=== PATIENT | female | born 1955 | race Caucasian/White ===

== ENCOUNTER 2020-09-21 07:55 | Day surgery (SDC) | payer OTHER ==
--- NOTE | 2020-09-19 11:44 | EKG ---
Test Date: 2020-09-18 Test Time: 16:19:40 [employer]er: WENDY MEASUREMENT RESULTS: Intervals: Rate: 88 WA: 132 QRSD: 80 QT: 372 QTc: 450 [place]: P: 23 WA: 132 QRS: 39 T: 64 INTERPRETIVE STATEMENTS: Normal sinus rhythm Low voltage QRS Borderline ECG No previous ECG available for comparison Electronically Signed On 09-19-20 11:40:46 [employer] by Kushal Lynne
--- OUTSIDE RECORDS SUMMARY | 2020-09-21 08:03 | XMS REPORT | Continuity of Care Document ---
:1955 Author Organization [facility] Care Team Providers Name Role Phone [facility] Unavailable Un available Problems Problem Status Onset Classification Date Comments Sour e Date Reported M76.61 - Active [facility] "[facility] [place] TENDINITIS, RIGHT LEG Medications No Data Provided for This Section Allergies, Adverse Reactions, Alerts No Known Medication Allergies Immunizations No Data Provided for This Section Results No Data Provided for This Section Pathology Reports No Data Provided for This Section Diagnostic Reports Report Value Date Source Ankle wo contrast MRI Examination: MRI of the right ankle wi thout contrast 09/29/2015 [facility] [place] History: M76.61 Achilles tendinitis, right leg Comparison: None. TECHNIQUE: Multiplanar, mult isequence magnetic resonance imaging of the right ankle was performed without administration of intravenous gadolinium contrast. Findings: Bone and joint: Anatomic ali gnment is maintained across the right ankle. No acute bony fracture, joint dislocation, or stress-related marrow edema is seen. Scattered mild midfoot osteoarthritic changes are seen. There is a focal f ull-thickness 2 mm chondral defect along the medial tibial plafond. The sinus tarsi is unremarkable. Type I os navicularis is noted. Ligaments and tendons: Moder ate thickening and hyperintensity of the insertional fibers the Achilles tendon is seen, compatible with tendinosis. No tear or disruption is noted. Small amount of fluid in the adjacent retrocalcaneal bursa is seen. There is additional mild edema of the Kager's fat-pad. Medial flexor, lateral, and anterior tendons of the ankle are intact. The deltoid ligament complex is intact. The anterior talofibular, posterior talofibular, and calcaneofibular ligaments are intact. The syndesmotic ligaments are intact. Soft tissues: No extracapsul ar mass is seen. The tarsal tunnel and its contents are unremarkable. IMPRESSION: 1. Moderate insertional Achi lles tendinosis without tear or disruption. There is associated retrocalcaneal bursitis as well as peritendinitis. 2. Focal full-thickness 2 mm chondral defect of the medial tibial plafond. 3. Mild midfoot osteoarthrosis. SL: 16 Foot 3 views bilateral 12/22/2014 [facility] [place] DX REASON FOR EXAM: 696.0 Psoriatic arthritis. COMPARISON: Bilateral foot series 12/28/2012. FINDINGS: Three views of bot h feet. No demonstrable fracture, dislocation or erosion. The right foot series is rem arkable for a small posterior calcaneal enthesophyte at the insertion of the Achilles tendon. Small bony spurs involving the dorsal aspect of the first tarsal metatarsal join t. Small bony spur involving the distal interphalangeal joint of the third digit. Ankylosis of the distal interphalangeal joint of the fifth digit. The left foot series is colleen rkable for a tiny posterior calcaneal enthesophyte at the insertion of the Achilles tendon. Small bony spurs involving the distal interphalangeal joints of the third and fourth digits. IMPRESSION: There has been n o significant interval change from the comparison examination. SL: 16 Hand 2 views Bilateral 12/22/2014 [facility] [place] DX REASON FOR EXAM: 696.0 Psoriatic arthritis. COMPARISON: Bilateral hand x-ray 12/28/2012. FINDINGS: AP and lateral vie ws of both hands. Two images are submitted. No demonstrable fracture or dislocation. Images of the right hand are remarkable for a tiny bony spur involving the base of the distal phalanx of the first digit. Narrowing of the distal interphalangeal joints of the second through fourth digi ts. Joint space narrowing wi th central erosive change at the distal interphalangeal joint of the fifth digit. Images of the left hand are remarkable for a tiny bony spur involving the base of the distal phalanx of the first digit. Joint space narrowing with central erosive change at the distal interphalangeal j oints of the second and thir d digits. Narrowing of the distal interphalangeal joint of the fourth digit. Ankylosis of the distal interphalangeal joint of the fifth digit. Tiny bony spurs involving the p roximal interphalangeal join t of the fifth digit. Tiny cyst in the marrow of the lunate. IMPRESSION: There has been n o significant interval change from the comparison examination. SL: 16 Hip bilateral w pelvis 10/14/2013 [facility] [place] and both lat hips REASON FOR EXAM: Pain in joint. COMPARISON: None. FINDINGS: AP view of the pel vis. Additional view of each hip. Three images are submitted. The hip joint spaces are preserved without demonstrable arthritic change. The hips, sacroiliac joints and pubic symphysis are unremarkable. There are degenerative changes of the visualized lower lumbar spine. Calcified pelvic phleboliths. No demonstrable fracture, dislocation or osseous lesion. IMPRESSION: 1. Degenerative changes of the visualized lower lumbar spine. 2. Otherwise unremarkable views of the pelvis an d hips. Please correlate clinically and consider follow- up imaging as indicated. Dictation code: 16 Consultation Notes No Data Provided for This Section Discharge Summaries No Data Provided for This Section History and Physicals No Data Provided for This Section Vital Signs No Data Provided for This Section Encounters Location Location Encounter Encounter Reason Attending ADM [place] Stat Source Details Type Number For Provider Date Date Visit [facility] Outpt Diag [id number] [facility] 12[facility]22 12/23 [facility] [place] [place] [facility] Outpt Diag [id number] [place] 09/29 09/30 [facility] [place] Procedures No Data Provided for This Section Assessment and Plan No Data Provided for This Section Plan of Care No Data Provided for This Section Social History Social History Date Source No data available for this 09/30/2015 [facility] and section Family History No Data Provided for This Section Advance Directives No Data Provided for This Section Functional Status No Data Provided for This Section
--- OUTSIDE RECORDS SUMMARY | 2020-09-21 08:05 | XMS REPORT | Continuity of Care Document ---
:1955 Author Organization [facility] t Address [address] [place] [address] Care Team Providers Name Role Phone Doctor Unassigned, Name Attending Clinician Unavailable Lab, Fam Pob I Attending Clinician Unavailable Naldo LINDER Attending Clinician LYDIA Attending Clinician Unavailable ADRIAN Attending Clinician Unavailable LESVIA Attending Clinician Unavailable Jaciel Benoit Attending Clinician Real Waddell Attending Clinician Problems Condition Condition Condition Status Onset Resolution Last Treating Co mments Source Name Details Category Date Date Treatment Clinician Date M76.61 - Diagnosis Active 2014-102015-09-29 M latriciaria "ACHILLES 2-15 10:10:00 l TENDINITIS M76.61 - 00:01: He percy , RIGHT "ACHILLES 00 LEG TENDINITIS , RIGHT LEG Active 09/25/2015 DAVIDD Missy Abnormal Abnormal Problem Active Unive rs blood blood ity of level of level of [place] mineral mineral Physici ans Anemia Anemia Problem Active Univers ity of [place] Physici ans Localized Localized Problem Active Uni vers osteoarthr osteoarthr it y of itis of itis of [place] hand hand Physici ans Achilles Achilles Problem Active Unive rs tendinitis tendinitis it y of of right of right [place] lower lower Physici extremity extremity ans Drug Drug Problem Active Univers therapy therapy ity of [place] Physici ans Anxiety Anxiety Problem Active Univers ity of [place] Physici ans Foot pain Foot pain Problem Active Uni vers ity of [place] Physici ans Hand pain Hand pain Problem Active Uni vers ity of [place] Physici ans Encounter Encounter Problem Active Uni vers for for it[place] of methotrexa [place]otrexa [place] Physici monitoring monitoring an s Effusion Effusion Problem Active Unive rs of left of left ity of knee knee [place] Physici ans Chronic Chronic Problem Active Univers pain of pain of [place] of left knee left knee [place] Knee Knee Problem Active Univers osteoarthr osteoarthr it y of itis itis [place] Physici ans Psoriatic Psoriatic Problem Active Uni vers arthropath arthropath it y of y y [place] Physici ans Esophageal Esophageal Problem Active U nivers reflux reflux ity of [place] Physici ans Rotator Rotator Problem Active Univers cuff cuff ity of arthropath [place]ropath [place] of right y of right Ph ysici shoulder shoulder ans Rheumatoid Rheumatoid Problem Active U nivers arthritis, arthritis, it y of involving involving [place] unspecifie unspecifie Ph ysici d site, d site, ans unspecifie unspecifie d d rheumatoid rheumatoid factor factor presence presence Chronic Chronic Problem Active Univers frontal frontal [place]y of sinusitis [place]itis [place] ans Allergies, Adverse Reactions, Alerts Allergy Allergy Status Severity Reaction(s) Onset Inactive Treating Comm ents Source Name Type Date Date Clinician Bactrim Allergy Active Univers to drug ity of (finding [place] ) Physici ans Social History Social Habit Start Date Stop Date Quantity Comments Source Social History 2015-09-30 2015-09-30 [facility] 05:59:00 05:59:00 Smoking Status Start Date Stop Date Source Never smoked tobacco (finding) U [facility] Physicians Medications Ordered Filled Start Stop Current Ordering Indication Dosage Frequency Signature Comments Components Source Medication Medication Date Date Medication? Clinician (SIG) Name Name Pantoprazol Pantoprazol Yes GALLO Take 1 tab Univers e Sodium 20 e Sodium 20 2-21 FREEMAN twice a ity of MG Oral MG Oral 00:00: M.D. day with Patrice as Tablet Tablet 00 naproxen Physici Delayed Delayed ans Release Release Esomeprazol Esomeprazol 2018-10 Yes GALLO TAKE 1 Univers e Magnesium e Magnesium 1-15 FREEMAN CAPSULE ity of 20 MG Oral 20 MG Oral 00:00: M.D. TWICE [place] Capsule Capsule 00 DAILY Physici Delayed Delayed ALONG WITH ans Release Release NAPROXEN. Gel-One 30 Gel-One 30 Yes GALLO Inject one Univers MG/3ML MG/3ML 8-27 FREEMAN syringe ity of Intra-artic Intra-artic 00:00: M.D. into the [place] ular ular 00 knee by Physicmonique Prefilled Prefilled ans Syringe Syringe Pennsaid 2 Pennsaid 2 Yes GALLO Apply two Univers % % 9-13 FREEMAN pumps to ity of Transdermal Transdermal 00:00: M.D. bilateral [place] Solution Solution 00 knees Physic i twice a ans day traMADol traMADol Yes GALLO 1 QD TAKE 1 Uni vers HCl - 50 MG HCl - 50 MG 5-15 FREEMAN TABLET ity of Oral Tablet Oral Tablet 00:00: M.D. DAILY PRN Physici ans DULoxetine DULoxetine Yes GALLO QD TAKE TWO Univers HCl - 20 MG HCl - 20 MG 6-28 FREEMAN CAPSULES ity of Oral Oral 00:00: M.D. BY MOUTH [place] Capsule Capsule 00 DAILY Physici Delayed Delayed ans Release Release Particles Particles Methotrexat Methotrexat Yes GALLO TAKE 8 Univers e 2.5 MG e 2.5 MG 2-15 FREEMAN TABLETS BY ity of Oral Tablet Oral Tablet 00:00: M.D. MOUTH [place] 00 WEEKLY Physici ans Folic Acid Folic Acid Yes GALLO 2 QD TAKE TWO Univers 1 MG Oral 1 MG Oral 2-15 FREEMAN TABLETS BY ity of Tablet Tablet 00:00: M.D. MOUTH [place] 00 DAILY Physici ans Crestor 10 Crestor 10 Yes M.D. 1 QD TAKE 1 Univers MG Oral MG Oral 2-15 TABLET ity of Tablet Tablet 00:00: DAILY. Physici ans Levothyroxi Levothyroxi Yes M.D. 1 QD TAKE 1 Univers ne Sodium ne Sodium 2-15 TABLET ity of 75 MCG Oral 75 MCG Oral 00:00: DAILY. [place] Tablet Tablet 00 Physici ans Osteo Osteo Yes M.D. 2 QD TAKE 2 Univers Bi-Flex Adv Bi-Flex Adv 2-[address] 00:00: [place] Oral Tablet [place] Tablet 00 P hysici ans Multivitami Multivitami Yes M.D. 1 QD TAKE 1 Univers ns TABS ns TABS 2-15 TABLET ity of 00:00: DAILY. [place] 00 Physici ans Fish Oil Fish Oil 2011-0 Yes M.D. 1 Q0.5D TAKE 1 Un jayy 1000 MG 1000 MG 2-15 CAPSULE ity of Oral Oral 00:00: TWICE [place] Capsule Capsule 00 DAILY Physici ans Flonase 50 Flonase 50 Yes M.D. Uni vers MCG/ACT MCG/ACT ity of SUSP SUSP [place] Physici ans Allergy Allergy Yes M.D. Univers TABS TABS ity of [place] Physici ans Align CAPS Align CAPS Yes M.D. USE U nivers DIRECTED. ity of [place] Physici ans Montelukast Montelukast Yes M.D. U nivers Sodium 10 Sodium 10 ity o f MG Oral MG Oral [place] Tablet Tablet Physici ans Lisinopril Lisinopril Yes M.D. Uni vers 10 MG Oral 10 MG Oral ity of Tablet Tablet [place] Physici ans Folic Acid Folic Acid Yes M.D. Uni vers 5 MG Oral 5 MG Oral ity o f Capsule Capsule [place] Physici ans Immunizations Ordered Immunization Filled Immunization Date Status Commen ts Source Name Name Fluzone Quadrivalent 2018-07-20 Completed Univ ersity of 0.5 ML Intramuscular 10:13:00 [place] Suspension Vital Signs Vital Name Observation Time Observation Value Comments Source Systolic blood 2020-07-17 145 mm[Hg] Location: [facility] 11:00:00 Position: [place] Physician s Sitting Diastolic blood 2020-07-17 90 mm[Hg] Location: [facility] 11:00:00 Position: [place] Physician s Sitting Body height 2020-07-17 63 [in_us] [facility] 11:00:00 [place] Physician s Weight 2020-07-17 160 [lb_av] [facility] 11:00:00 [place] Physician s Body mass index 2020-07-17 28.34 kg/m2 [place] o f (BMI) [Ratio] 11:00:00 [place] valenzuela Body temperature 2020-07-17 97.9 [degF] Method: [facility] 11:00:00 Tympanic [place] Physician s Heart Rate 2020-07-17 74 /min Quality: Normal University o f 11:00:00 [place] Physician s Respiratory rate 2020-07-17 14 /min Quality: Normal Universi of 11:00:00 [place] Physician s O2 SAT 2020-07-17 97 % Source: [facility] 11:00:00 [place] Physician s Systolic blood 2020-03-21 135 mm[Hg] Location: [facility]; University of pressure 15:10:00 Position: [place] Physician s Sitting Diastolic blood 2020-03-21 87 mm[Hg] Location: [facility]; University of pressure 15:10:00 Position: [place] Physician s Sitting Body height 2020-03-21 63 [in_us] [facility] 15:10:00 [place] Physician s Weight 2020-03-21 163.9 [lb_av] University 15:10:00 [place] Physician s Body mass index 2020-03-21 29.03 kg/m2 University o f (BMI) [Ratio] 15:10:00 [place] Physicia ns Heart Rate 2020-03-21 80 /min Location: K[place] [facility] 15::00 Carotid; [place] Physician s Body temperature 2020-03-21 98.2 [degF] Method: [facility] 15:10:00 Temporal [place] Physician s Systolic blood 2019-12-02 131 mm[Hg] University of pressure 11:41:00 [place] Physician s Diastolic blood 2019-12-02 86 mm[Hg] University o f pressure 11:41:00 [place] Physician s Body height 2019-12-02 63 [in_us] [place] of 11:41:00 [place] Physician s Weight 2019-12-02 165 [lb_av] [facility] 11:41:00 [place] Physician s Body mass index 2019-12-02 29.23 kg/m2 University o f (BMI) [Ratio] 11:41:00 [place] Physicia ns Body temperature 2019-12-02 98.8 [degF] [facility] 11:41:00 [place] Physician s Heart Rate 2019-12-02 74 /min [facility] 11:41:00 [place] Physician s BP Systolic 2019-09-02 139 mm[Hg] Location: [facility]; [facility] 11:34:00 Position: [place] Physician s Sitting BP Diastolic 2019-09-02 90 mm[Hg] Location: [facility]; [place] of 11:34:00 Position: [place] Physician s Sitting Height 2019-09-02 63 [in_us] University of 11:34:00 [place] Physician s Weight 2019-09-02 162.375 [lb_av] University o f 11:34:00 [place] Physician s Body Mass Index 2019-09-02 28.76 kg/m2 University o f Calculated 11:34:00 [place] Physician s Temperature 2019-09-02 97.9 [degF] Method: Oral [place] of 11:34:00 [place] Physician s Heart Rate 2019-09-02 71 /min Location: R [facility] 11:34:00 Brachial [place] Physician s Artery; BP Systolic 2019-07-27 159 mm[Hg] Location: [facility]; [facility] 10:07:00 Position: [place] Physician s Sitting BP Diastolic 2019-07-27 90 mm[Hg] Location: [facility] 10:07:00 Position: [place] Physician s Sitting Height 2019-07-27 63 [in_us] University of 10:07:00 [place] Physician s Weight 2019-07-27 167.3 [lb_av] University of 10:07:00 [place] Physician s Body Mass Index 2019-07-27 29.64 kg/m2 University o f Calculated 10:07:00 [place] Physician s Heart Rate 2019-07-27 75 /min Location: R [facility] 10:07:00 Carotid; [place] Physician s BP Systolic 2019-03-14 165 mm[Hg] Location: [facility] 09:42:00 Position: [place] Physician s Sitting BP Diastolic 2019-03-14 103 mm[Hg] Location: [facility] 09:42:00 Position: [place] Physician s Sitting Height 2019-03-14 63 [in_us] [place] of 09:42:00 [place] Physician s Weight 2019-03-14 174.125 [lb_av] University o f 09:42:00 [place] Physician s Body Mass Index 2019-03-14 30.85 kg/m2 University o f Calculated 09:42:00 [place] Physician s Temperature 2019-03-14 98.3 [degF] Method: Oral [place] of 09:42:00 [place] Physician s Heart Rate 2019-03-14 73 /min Location: [facility] [place] [facility] 09:42:00 Brachial [place] Physician s Artery; BP Systolic 2018-11-16 158 mm[Hg] Location: [facility] 09:37:00 Position: [place] Physician s Sitting BP Diastolic 2018-11-16 93 mm[Hg] Location: [facility] 09:37:00 Position: [place] Physician s Sitting Height 2018-11-16 63 [in_us] University of 09:37:00 [place] Physician s Weight 2018-11-16 175.375 [lb_av] University o f 09:37:00 [place] Physician s Body Mass Index 2018-11-16 31.07 kg/m2 University o f Calculated 09:37:00 [place] Physician s Temperature 2018-11-16 98.4 [degF] Method: Oral [place] of 09:37:00 [place] Physician s Heart Rate 2018-11-16 85 /min Location: [facility] [place] [facility] 09:37:00 Brachial [place] Physician s Artery; BP Systolic 2018-07-20 139 mm[Hg] Location: [facility]; [facility] :35:00 Position: [place] Physician s Sitting BP Diastolic 2018-07-20 88 mm[Hg] Location: [place]; [facility] :35:00 Position: [place] Physician s Sitting Height 2018-07-20 63 [in_us] University of 09:35:00 [place] Physician s Weight 2018-07-20 172 [lb_av] [place] of 09:35:00 [place] Physician s Body Mass Index 2018-07-20 30.47 kg/m2 University o f Calculated 09:35:00 [place] Physician s Temperature 2018-07-20 98.1 [degF] Method: Oral [facility] 09:35:00 [place] Physician s Heart Rate 2018-07-20 85 /min Location: [facility] [place] [facility] 09:35:00 Brachial [place] Physician s Artery; BP Systolic 2018-03-19 119 mm[Hg] [facility] Position: [place] Physician s Sitting BP Diastolic 2018-03-19 83 mm[Hg] [facility]:03:[facility] Position: [place] Physician s Sitting Height 2018-03-19 63 [in_us] University of 11:03:00 [place] Physician s Weight 2018-03-19 171.125 [lb_av] University o f 11:03:00 [place] Physician s Body Mass Index 2018-03-19 30.31 kg/m2 University o f Calculated 11:03:00 [place] Physician s Temperature 2018-03-19 98.2 [degF] Method: Oral [place] of 11:03:00 [place] Physician s Heart Rate 2018-03-19 78 /min Location: [facility] [place] [facility] 11:03:00 Brachial [place] Physician s Artery; BP Systolic 2017-11-17 132 mm[Hg] Location: [place]; [facility] 11:34:00 Position: [place] Physician s Sitting BP Diastolic 2017-11-17 78 mm[Hg] Location: [place]; [facility] 11:34:00 Position: [place] Physician s Sitting Height 2017-11-17 63 [in_us] [facility] :34:00 [place] Physician s Weight 2017-11-17 166.375 [lb_av] [facility] 11:34: [place] Physician s Body Mass Index 2017-11-17 29.47 kg/m2 [facility] Calculated :34: [place] Physician s Temperature 2017-11-17 97.9 [degF] Method: Oral [facility] : [place] Physician s Heart Rate 2017-11-17 76 /min Location: [facility] [place] [facility] :: Brachial [place] Physician s Artery; Procedures Procedure Date / Time Performed Performing Clinician Sourc e [QL] CBC (INCLUDES 2020-07-17 00:00:00 [facility] DIFF/PLT) Physicians [QL] CMP W/EGFR 2020-07-17 00:00:00 [facility] Physicians [QL] C-REACTIVE 2020-07-17 00:00:00 [facility] PROTEIN Physicians [QL] SED RATE BY 2020-07-17 00:00:00 [facility] MODIFIED [place] Physicians [QL] ANGEL SCREEN IFA 2020-07-17 00:00:00 [facility] W/REFL TITER IFA Physicians [QL] ANCA SCREEN WITH 2020-07-17 00:00:00 [facility] MPO AND PR3 WITH Physicians REFLEX TO ANCA TITER [QL] CMP W/EGFR 2020-03-21 00:00:00 [facility] Physicians [QL] CBC (INCLUDES 2020-03-21 00:00:00 [facility] DIFF/PLT) Physicians [QL] C-REACTIVE 2020-03-21 00:00:00 [facility] PROTEIN Physicians [QL] SED RATE BY 2020-03-21 00:00:00 [facility] MODIFIED [place] Physicians [QLH] CBC (INCLUDES 2019-12-02 00:00:00 [facility] DIFF/PLT) Physicians [QLH] CMP W/EGFR 2019-12-02 00:00:00 [facility] Physicians [QLH] C-REACTIVE 2019-12-02 00:00:00 [facility] PROTEIN Physicians [A] Ultrasound, 2019-12-02 00:00:00 [facility] Extremity, Physicians Nonvascular, real-time with image doucumentation; Limited [id number] [QLH] CBC (INCLUDES 2019-09-02 00:[facility] Physicians [QLH] CMP W/EGFR 2019-09-02 00:00:00 [facility] Physicians [QLH] C-REACTIVE 2019-09-02 00:00:00 [facility] PROTEIN Physicians [U] XR KNEE 3 VWS 2019-09-02 00:00:00 [facility] BILATERAL Physicians [Q] CELL COUNT AND 2019-07-27 00:00:00 [facility] [place] DIFF, FLUID, OTHER Physicians [Q] CRYSTALS, FLUID 2019-07-27 00:00:00 [facility] [A] Ultrasound, 2019-07-15 00:00:00 [place] [facility] Extremity, Physicians Nonvascular, real-time with image doucumentation; Limited [id number] [QLH] CBC (INCLUDES 2019-03-14 00:00:00 [facility] DIFF/PLT[facility] Physicians [QLH] CMP W/EGFR 2019-03-14 00:00:00 [facility] Physicians [QLH] C-REACTIVE 2019-03-14 00:00:00 [facility] PROTEIN Physicians [U] XRAY HIPS 2019-03-14 00:00:00 [place] o f [place] BILATERAL MIN 2 VWS Physicians AND AP PELVIS [id number] [QLH] CBC (INCLUDES 2018-11-16 00:00:00 [facility] DIFF/PLT[facility] Physicians [QLH] CMP W/EGFR 2018-11-16 00:00:00 [facility] [place] Physicians [QLH] C-REACTIVE 2018-11-16 00:00:00 [facility] [place] PROTEIN Physicians [QLH] SED RATE BY 2018-11-16 00:00:00 [facility] MODIFIED [place] Physicians [QLH] CBC (INCLUDES 2018-03-19 00:00:00 [facility] DIFF/PLT[facility] Physicians [QLH] CMP W/EGFR 2018-03-19 00:00:00 [facility] [place] Physicians [QLH] C-REACTIVE 2018-03-19 00:00:00 [facility] [place] PROTEIN Physicians [QLH] SED RATE BY 2018-03-19 00:00:00 [facility] [place] MODIFIED [place] Physicians [QLH] SED RATE BY 2017-11-17 00:00:00 [facility] MODIFIED [place] Physicians Plan of Care Planned Activity Planned Date Details Comments Source Diagnostic Test 2019-12-02 [A] Ultrasound, [facility] Pending 00:00:00 Extremity, Physicians Nonvascular, real-time with image doucumentation; Limited 63611 [code = [A] Ultrasound, Extremity, Nonvascular, real-time with image doucumentation; Limited [id number]] Diagnostic Test 2019-07-15 [A] Ultrasound, [facility] Pending 00:00:00 Extremity, Physicians Nonvascular, real-time with image doucumentation; Limited 07958 [code = [A] Ultrasound, Extremity, Nonvascular, real-time with image doucumentation; Limited [id number]] Diagnostic Test 2019-06-14 [QLH] CBC [facility] Pending 00:00:00 (INCLUDES Physicians DIFF/PLT) [code = [QLH] CBC (INCLUDES DIFF/PLT)] Diagnostic Test 2019-06-14 [QLH] CMP W/EGFR [facility] Pending 00:00:00 [code = [QLH] CMP Physicians W/EGFR] Future Appointment 2020-11-19 Juan Francisco HOLDER [facility] 11:30:00 Catrachita FREEMAN Encounters Start End Encounter Admission Attending Care Care Encounter Source Date/Time Date/Time Type Type Clinicians Facility Department ID 2020-08-28 2020-08-28 Orders Doctor JOHNNA [id number] 00:00:00 00:00:00 Only Unassigned, SHANNAN [id number] [facility] [id number] 2020-08-08 2020-08-08 Laboratory Lab, [facility] [id number] 09:07:45 09:27:45 Only Fam Pob I Health [id number] [place] [id number] Mickie [id number] nal [address] One 2020-07-26 2020-07-26 Refleila Hitchcock [facility] [id number] 00:00:00 00:00:00 Bijan Enciso [id number] [place] [id number] Professio [phone] [address] 2020-07-17 2020-07-17 Appointmen REED FREEMAN Multispecia [id number] Univers 11:00:00 11:00:00 t; GALLO FREEMAN M.D. lty - christa of [place] HOLDER [facility] Physici ans 2020-07-11 2020-07-11 [facility] [id number] 00:00:00 00:00:00 Bijan Enciso [id number] [place] [id number] Professio [phone] [address] 2020-06-27 2020-06-27 [facility] [id number] 00:00:00 00:00:00 Bijan Health [id number] [place] [id number] Professio [phone] [place] [address] Office Building [facility] 2020-05-09 2020-05-09 Laboratory Lab, [facility] 1.2.840.114 [id number] 14:27:20 14:47:20 Only Fam Pob I Health [id number] [place] [id number] Professio [phone] [place] [address] Office [facility] 2020-05-09 2020-05-09 Letter Doctor JOHNNA [id number] 00:00:00 00:00:00 (Out) Unassigned, SHANNAN [id number] [facility] [id number] [id number] [facility] 2020-03-21 2020-03-21 Appointmen REED FREEMAN Rheumatolog [id number] Univers 15:00:00 15:00:00 t; GALLO FREEMAN M.D. y Tawanda M.D. [place] Physici ans 2020-03-17 2020-03-17 [facility] 1.2.840.114 [id number] 00:00:00 00:00:00 Bijan Enciso [id number] [place] [id number] Professio [phone] [address] 2020-02-12 2020-02-12 [facility] [id number] 00:00:00 00:00:00 Bijan Enciso [id number] [place] [id number] Professio [phone] [address] 2020-01-23 2020-01-23 Telemedici [facility] 1.2.840.114 [id number] 07:45:32 08:00:32 ne Visit Bijan Enciso [id number] [place] [id number] Professio [phone] [address] 2020-01-12 2020-01-12 [facility] [id number] 00:00:00 00:00:00 Bijan Enciso [id number] [place] [id number] Professio [phone] [address] 2019-12-02 2019-12-02 AppointREED Dominique Rheumatolog [id number] Univers 11:30:00 11:30:00 t; GALLO FREEMAN M.D. y ity of [place] HOLDER [facility] [place] 2019-09-02 2019-09-02 AppointREED Dominique Multispecia [id number] Univers 11:30:00 11:30:00 t; GLALO FREEMAN M.D. lty - ity of [place] HOLDER [facility] 2019-08-24 2019-08-24 Appointmen REED CAMPBELL Multispecia [id number] Univers 10:00:00 10:00:00 t; NURSE ADRIAN lty - ity of NURSE [facility] 2019-07-27 2019-07-27 AppointREED Dominique Multispecia [id number] Univers 10:00:00 10:00:00 t; GALLO FREEMAN M.D. lty - ity of [place] HOLDER [facility] 2019-03-14 2019-03-14 REED Herndon Multispecia [id number] Univers 09:30:00 09:30:00 t; GALLO FREEMAN M.D. lty - itTrey M.D. [facility] Physici ans 2018-11-16 2018-11-16 REED Herndon [facility] [id number] Univers 09:30:00 09:30:00 t; GALLO FREEMAN M.D. [place] ity of [place], M.D. [place] Physici ans 2018-07-20 2018-07-20 REED Herndon [facility] [id number] Univers 09:30:00 09:30:00 t; GALLO FREEMAN M.D. [place] it[place] of [place], M.D. [place] Physici ans 2018-03-19 2018-03-19 REED Herndon [facility] [id number] Univers 11:00:00 11:00:00 t; GALLO FREEMAN M.D. [place] ity of [place], M.D. [place] Physici ans 2017-11-17 2017-11-17 REED Herndon Rheumatolog [id number] Univers 11:30:00 11:30:00 t; GALLO FREEMAN M.D. y ity of [place], M.D. [place] Physici ans 2017-06-29 2017-06-29 REED Herndon [facility] [id number] Univers 14:00:00 14:00:00 t; GALLO FREEMAN M.D. ity of [place], M.D. [place] Physici ans 2017-03-18 2017-03-18 REED Herndon Multispecia [id number] Univers 13:00:00 13:00:00 t; GALLO FREEMAN M.D. lty Tawanda M.D. [facility] Physici ans 2017-03-02 2017-03-02 REED Herndon [facility] [id number] Univers 08:00:00 08:00:00 t; GALLO FREEMAN M.D. ity of [place], M.D. [place] Physici ans 2017-02-24 2017-02-24 Sukhjinder FREEMAN UTP UTP [id number] Univers 15:00:00 15:00:00 t; GALLO FREEMAN M.D. ity of [place], M.D. [place] Physici ans 2016-10-31 2016[facility]10-[facility] [id number] Univers 11:00:00 11:00:00 t; GALLO FREEMAN M.D. ity of [place], M.D. [place] Physic ans 2016-07-02 2016-07-02 [facility] LYDIA [facility] UTP [id number] Univers 10:00:00 10:00:00 t; GALLO FREEMAN M.D. ity of [place], M.D. [place] Physic ans 2016-06-24 2016-06-24 [facility] FREEMAN [facility] [id number] Univers 08:30:00 08:30:00 t; GALLO FREEMAN M.D. ity of [place], M.D. [facility] ans 2016-03-24 2016-03-24 [facility] [id number] Univers 16:00:00 16:00:00 t; ASIF LAKHANI ASIF HUTCHINSElcho, [place] HUTCHINS Physi ci MFranklin ans 2015-12-24 2015-12-24 [facility] U[facility] [id number] Univers 09:30:00 09:30:00 t; ASIF LAKHANI ASIF HUTCHINSElcho, [place] HUTCHINS Physi ci MFranklin ans 2015-09-29 2015-09-29 [facility] [id number] 10:00:00 23:59:00 Tremayne K 03 2014-12-22 2014-12-22 Outpatient SEVERO Waddell [id number] 08:43:00 23:59:00 Dennise Hernández Results Test Description Test Time Test Comments Results Result Comments Source [QL] ANCA SCREEN WITH MPO AND PR3 WITH REFLEX TO ANCA TITER 2020-07-20 11:13:00 Test Item Value Reference Range Interpretation Comme nts ANCA SCREEN (test code = NEGATIVE NEGATIVE ANC A Screen includes evaluation for ANCA SCREEN) p-ANCA, c-ANCA andatypical p-ANCA. A positive ANCA s creen reflexes to titerand patter n(s), e.g., cytoplasmic pattern (c-ANCA ),perinuclear pattern (p-ANCA), or at ypical p-ANCA pattern.c-ANCA and p-ANCA are observed in vasculitis, whereasatypical p-ANCA is observed in IBD (Inflammatory BowelDisease). Atypical p-ANCA is detected in abo ut 55% to 80% ofpatients with ulcerative colitis but only 5% to 25% ofpatients with Crohn's disease. MYELOPEROXIDASE ANTIBODY <1.0 <1.0 <1. 0 AI No Antibody Detected> or = 1.0 (test code = AI Antibody Det ected Autoantibodies to MYELOPEROXIDASE ANTIBODY) my eloperoxidase (MPO) are commonlyassocia lynn with the following small-vessel va sculitides:microscopic polyangiitis, p olyarteritis nodosa,Churg-St rauss syndrome, necrotizing and crescenticglome rulonephritis and occasionally gr anulomatosis withpolyangiiti s (GPA, Lorna's). The perinuclear IFA pattern,(p-ANCA) is based largely o n autoantibody to myeloperoxidase which serves as the primary antigen . These autoantibodiesa re present in active disease. PROTEINASE-3 ANTIBODY <1.0 <1.0 <1.0 A I No Antibody Detected> or = 1.0 (test code = PROTEINASE-3 AI Antibody Detected Autoantibodies to ANTIBODY) proteinase-3 (P R-3) are accepted ascharacteristi c for granulomatosis with polyangiit is (GPA,Lorna's), and are detectable in 95% of the histologicallyp roven cases. The cytoplasmic IFA pattern, (c-ANCA), isbased largely on autoantibody to OH-3 which serves as theprimary antigen. These autoantib odies are present in activedisease. [facility][QL] CMP [id number] 11:13:00 Test Item Value Reference Range Interpretation Comments GLUCOSE; Normal 119 mg/dl 65-139 N Non-fasting reference (test code = interval 1547-9) UREA NITROGEN 16 mg/dl 7-25 N (BUN) (test code = UREA NITROGEN (BUN)) CREATININE (test 0.69 mg/dl 0.50-0.99 N For patient s >49 years code = of age, the ref erence CREATININE) limitfor Creati nine is approximately 1 3% higher for peopleidentifie d as -Tiesha n. eGFR NON-AFR. 93 {ML/MIN/1.7} > OR = 60 N [place] (test code = eGFR NON-AFR. [place]) eGFR 107 {ML/MIN/1.7} > OR = 60 N [place] (test code = eGFR ) BUN/CREATININE NOT APPLICABLE 6-22 RATIO (test code = BUN/CREATININE RATIO) SODIUM (test code 143 mmol/L 135-146 N = SODIUM) POTASSIUM (test 3.7 mmol/L 3.5-5.3 N code = POTASSIUM) CHLORIDE (test 104 mmol/L 98-110 N code = CHLORIDE) CARBON DIOXIDE 29 mmol/L 20-32 N (test code = CARBON DIOXIDE) CALCIUM (test 9.8 mg/dl 8.6-10.4 N code = CALCIUM) PROTEIN, TOTAL 6.9 g/dl 6.1-8.1 N (test code = PROTEIN, TOTAL) ALBUMIN (test 4.4 g/dl 3.6-5.1 N code = ALBUMIN) GLOBULIN (test 2.5 {G/DL CALC} 1.9-3.7 N code = GLOBULIN) ALBUMIN/GLOBULIN 1.8 {CALC} 1.0-2.5 N RATIO (test code = ALBUMIN/GLOBULIN RATIO) BILIRUBIN, TOTAL; 0.3 mg/dl 0.2-1.2 N Normal (test code = 43782-9) ALKALINE 57 u/l 37-153 N PHOSPHATASE (test code = ALKALINE PHOSPHATASE) AST; Normal (test 24 u/l 10-35 N code = 1916-6) ALT; Normal (test 23 u/l 6-29 N code = 1742-6) [facility][QL] SED RATE BY DELFINO [id number] 11:13:00 Test Item Value Reference Range Interpretation Comments SED RATE BY MODIFIED RAEREN (test 14 mm/h < OR = 30 N code = SED RATE BY MODIFIED RAEREN) [facility][QL] CBC (INCLUDES DIFF/PLT)2020-07-20 11:13:00 Test Item Value Reference Range Interpretation Comments WHITE BLOOD CELL COUNT 11.0 {Thousand/u} 3.8-10.8 (test code = WHITE BLOOD CELL COUNT) RED BLOOD CELL COUNT (test 4.19 {Million/uL} 3.80-5.10 N code = RED BLOOD CELL COUNT) HEMOGLOBIN; Normal (test 12.7 g/dl 11.7-15.5 N code = 76252-7) HEMATOCRIT; Normal (test 38.5 % 35.0-45.0 N code = 4544-3) MCV; Normal (test code = 91.9 fL 80.0-100.0 N 787-2) MCHC; Normal (test code = 33.0 g/dl 32.0-36.0 N 89077-1) RDW; Normal (test code = 14.7 % 11.0-15.0 N 788-0) PLATELET COUNT; Normal 313 {Thousand/u} 140-400 N (test code = 777-3) MPV; Normal (test code = 11.0 fL 7.5-12.5 N 00650-3) ABSOLUTE NEUTROPHILS (test 7997 {cells/uL} 2548-1249 code = ABSOLUTE NEUTROPHILS) ABSOLUTE LYMPHOCYTES (test 2299 {cells/uL} 850-3900 N code = ABSOLUTE LYMPHOCYTES) ABSOLUTE MONOCYTES (test 605 {cells/uL} 200-950 N code = ABSOLUTE MONOCYTES) ABSOLUTE EOSINOPHILS (test 44 {cells/uL} 15-500 N code = ABSOLUTE EOSINOPHILS) ABSOLUTE BASOPHILS (test 55 {cells/uL} 0-200 N code = ABSOLUTE BASOPHILS) NEUTROPHILS (test code = 72.7 % N NEUTROPHILS) LYMPHOCYTES (test code = 20.9 % N LYMPHOCYTES) MONOCYTES; Normal (test 5.5 % N code = 30732-0) EOSINOPHILS; Normal (test 0.4 % N code = 20264-7) BASOPHILS; Normal (test 0.5 % N code = 77266-6) [facility][Q] ANGEL IFA SCREEN W/REFL TO TITER AND PATTERN, [id number] 11:13:00 Test Item Value Reference Range Interpretation Comments ANGEL SCREEN, IFA POSITIVE NEGATIVE A ANGEL IFA is a first line (test code = ANGEL screen for detecting SCREEN, IFA) thepresence of up to approximately 1 50 autoantibodies invarious autoimmune dise ases. A positive ANGEL IF A resultis suggestive of a utoimmune disease and ref lexes totiter and evelina andino. Further laborat ory testing may beconsidere d if clinically kaden cated. For additional info rmation, please refer [email or web address](Thi s link is being provided for informational/e ducational purposes only.) [facility][QL] C-REACTIVE [id number] 11:13:00 Test Item Value Reference Range Interpretation Comments C-REACTIVE PROTEIN (test code = 1.0 mg/L <8.0 N C-REACTIVE PROTEIN) [facility][Q] Antinuclear Antibody, Titer and Pattern 2020-07-20 11:13:00 Test Item Value Reference Range Interpretation Comments ANGEL TITER (test 1:40 A low level ANGEL titer code = ANGEL may be present in TITER) pre-clinicalaut oimmune diseases and no rmal individuals. Reference R kavitha <1:4 0 Negative 1:40-1:80 Lo w Antibody Level >1:80 Elevated Antibo dy Level ANGEL PATTERN Nuclear, A Speckled patter n is (test code = Speckled associated with mixed ANGEL PATTERN) connectivetissu e disease (MCTD), systemic lupus erythematosus(S LE), Sjogren's syndr ome, dermatomyositis , and systemic sclerosis/polym yositis overlap. AC-2,4 ,5,29: Speckled Coke Loader ational Consensus on AN A Patterns(https: //doi.or [email or web address]/ccl- 2017-005 2) [facility][QL] CMP [id number] 15:33:00 Test Item Value Reference Range Interpretation Comments GLUCOSE; Normal 97 mg/dl 65-139 N Non-fasting reference (test code = interval 1547-9) UREA NITROGEN 21 mg/dl 7-25 N (BUN) (test code = UREA NITROGEN (BUN)) CREATININE (test 0.72 mg/dl 0.50-0.99 N For patient s >49 years code = of age, the ref erence CREATININE) limitfor Creati nine is approximately 1 3% higher for peopleidentifie d as -Tiesha n. eGFR NON-AFR. 90 {ML/MIN/1.7} > OR = 60 N [place] (test code = eGFR NON-AFR. [place]) eGFR 104 {ML/MIN/1.7} > OR = 60 N [place] (test code = eGFR ) BUN/CREATININE NOT APPLICABLE 6-22 RATIO (test code = BUN/CREATININE RATIO) SODIUM (test code 141 mmol/L 135-146 N = SODIUM) POTASSIUM (test 3.9 mmol/L 3.5-5.3 N code = POTASSIUM) CHLORIDE (test 102 mmol/L 98-110 N code = CHLORIDE) CARBON DIOXIDE 31 mmol/L 20-32 N (test code = CARBON DIOXIDE) CALCIUM (test 9.8 mg/dl 8.6-10.4 N code = CALCIUM) PROTEIN, TOTAL 7.2 g/dl 6.1-8.1 N (test code = PROTEIN, TOTAL) ALBUMIN (test 4.5 g/dl 3.6-5.1 N code = ALBUMIN) GLOBULIN (test 2.7 {G/DL CALC} 1.9-3.7 N code = GLOBULIN) ALBUMIN/GLOBULIN 1.7 {CALC} 1.0-2.5 N RATIO (test code = ALBUMIN/GLOBULIN RATIO) BILIRUBIN, TOTAL; 0.4 mg/dl 0.2-1.2 N Normal (test code = 02063-7) ALKALINE 60 u/l 37-153 N PHOSPHATASE (test code = ALKALINE PHOSPHATASE) AST; Normal (test 17 u/l 10-35 N code = 1916-6) ALT; Normal (test 16 u/l 6-29 N code = 1742-6) [facility][QL] SED RATE BY MODIFIED [id number] 15:33:00 Test Item Value Reference Range Interpretation Comments SED RATE BY MODIFIED WESTERGREN (test 43 mm/h < OR = 30 code = SED RATE BY MODIFIED WESTERGREN) [facility][QL] CBC (INCLUDES DIFF/PLT)2020-03-21 15:33:00 Test Item Value Reference Range Interpretation Comments WHITE BLOOD CELL COUNT 9.6 {Thousand/u} 3.8-10.8 N (test code = WHITE BLOOD CELL COUNT) RED BLOOD CELL COUNT (test 4.35 {Million/uL} 3.80-5.10 N code = RED BLOOD CELL COUNT) HEMOGLOBIN; Normal (test 13.4 g/dl 11.7-15.5 N code = 95031-6) HEMATOCRIT; Normal (test 40.3 % 35.0-45.0 N code = 4544-3) MCV; Normal (test code = 92.6 fL 80.0-100.0 N 787-2) MCHC; Normal (test code = 33.3 g/dl 32.0-36.0 N 05377-2) RDW; Normal (test code = 13.5 % 11.0-15.0 N 788-0) PLATELET COUNT; Normal 348 {Thousand/u} 140-400 N (test code = 777-3) MPV; Normal (test code = 10.6 fL 7.5-12.5 N 80710-1) ABSOLUTE NEUTROPHILS (test 5395 {cells/uL} 8052-8206 N code = ABSOLUTE NEUTROPHILS) ABSOLUTE LYMPHOCYTES (test 2851 {cells/uL} 850-3900 N code = ABSOLUTE LYMPHOCYTES) ABSOLUTE MONOCYTES (test 1027 {cells/uL} 200-950 code = ABSOLUTE MONOCYTES) ABSOLUTE EOSINOPHILS (test 259 {cells/uL} 15-500 N code = ABSOLUTE EOSINOPHILS) ABSOLUTE BASOPHILS (test 67 {cells/uL} 0-200 N code = ABSOLUTE BASOPHILS) NEUTROPHILS (test code = 56.2 % N NEUTROPHILS) LYMPHOCYTES (test code = 29.7 % N LYMPHOCYTES) MONOCYTES; Normal (test 10.7 % N code = 61612-1) EOSINOPHILS; Normal (test 2.7 % N code = 38473-9) BASOPHILS; Normal (test 0.7 % N code = 52881-5) [facility][] C-REACTIVE [id number] 15:33:00 Test Item Value Reference Range Interpretation Comments C-REACTIVE PROTEIN (test code = 10.5 mg/L <8.0 C-REACTIVE PROTEIN) [facility]] CMP [id number] 14:32:00 Test Item Value Reference Range Interpretation Comments GLUCOSE; Normal 96 mg/dl 65-139 N Non-fasting reference (test code = interval 1547-9) UREA NITROGEN 22 mg/dl 7-25 N (BUN) (test code = UREA NITROGEN (BUN)) CREATININE (test 0.89 mg/dl 0.50-0.99 N For patient s >49 years code = of age, the ref erence CREATININE) limitfor Creati nine is approximately 1 3% higher for peopleidentifie d as -Tiesha n. eGFR NON- 69 {ML/MIN/1.7} > OR = 60 N [place] (test code = eGFR NON-) eGFR 81 {ML/MIN/1.7} > OR = 60 N [place] (test code = eGFR ) BUN/CREATININE NOT APPLICABLE 6-22 RATIO (test code = BUN/CREATININE RATIO) SODIUM (test code 140 mmol/L 135-146 N = SODIUM) POTASSIUM (test 3.9 mmol/L 3.5-5.3 N code = POTASSIUM) CHLORIDE (test 102 mmol/L 98-110 N code = CHLORIDE) CARBON DIOXIDE 29 mmol/L 20-32 N (test code = CARBON DIOXIDE) CALCIUM (test 9.6 mg/dl 8.6-10.4 N code = CALCIUM) PROTEIN, TOTAL 6.8 g/dl 6.1-8.1 N (test code = PROTEIN, TOTAL) ALBUMIN (test 4.2 g/dl 3.6-5.1 N code = ALBUMIN) GLOBULIN (test 2.6 {G/DL CALC} 1.9-3.7 N code = GLOBULIN) ALBUMIN/GLOBULIN 1.6 {CALC} 1.0-2.5 N RATIO (test code = ALBUMIN/GLOBULIN RATIO) BILIRUBIN, TOTAL; 0.3 mg/dl 0.2-1.2 N Normal (test code = 09041-7) ALKALINE 55 u/l 37-153 N PHSPHATASE (test code = ALKALINE PHSPHATASE) AST; Normal (test 19 u/l 10-35 N code = 1916-6) ALT; Normal (test 25 u/l 6-29 N code = 1742-6) [facility]] CBC (INCLUDES DIFF/PLT)2019-12-06 14:32:00 Test Item Value Reference Range Interpretation Comments WHITE BLOOD CELL COUNT 11.3 {Thousand/u} 3.8-10.8 (test code = WHITE BLOOD CELL COUNT) RED BLOOD CELL COUNT (test 4.40 {Million/uL} 3.80-5.10 N code = RED BLOOD CELL COUNT) HEMAGLOBIN; Normal (test 13.6 g/dl 11.7-15.5 N code = 80345-0) HEMATOCRIT; Normal (test 40.7 % 35.0-45.0 N code = 4544-3) MCV; Normal (test code = 92.5 fL 80.0-100.0 N 787-2) MCHC; Normal (test code = 33.4 g/dl 32.0-36.0 N 08489-9) RDW; Normal (test code = 14.2 % 11.0-15.0 N 788-0) PLATELET COUNT; Normal 343 {Thousand/u} 140-400 N (test code = 777-3) MPV; Normal (test code = 10.3 fL 7.5-12.5 N 66424-9) ABSOLUTE NEUTROPHILS (test 6407 {cells/uL} 1183-3394 N code = ABSOLUTE NEUTROPHILS) ABSOLUTE LYMPHOCYTES (test 3627 {cells/uL} 850-3900 N code = ABSOLUTE LYMPHOCYTES) ABSOLUTE MONOCYTES (test 983 {cells/uL} 200-950 code = ABSOLUTE MONOCYTES) ABSOLUTE EOSINOPHILS (test 226 {cells/uL} 15-500 N code = ABSOLUTE EOSINOPHILS) ABSOLUTE BASOPHILS (test 57 {cells/uL} 0-200 N code = ABSOLUTE BASOPHILS) NEUTROPHILS (test code = 56.7 % N NEUTROPHILS) LYMPHOCYTES (test code = 32.1 % N LYMPHOCYTES) MONOCYTES; Normal (test 8.7 % N code = 15446-3) EOSINOPHILS; Normal (test 2.0 % N code = 50557-5) BASOPHILS; Normal (test 0.5 % N code = 59535-5) [facility]] C-REACTIVE [id number] 14:32:00 Test Item Value Reference Range Interpretation Comments C-REACTIVE PROTEIN (test code = 0.8 mg/L <8.0 N C-REACTIVE PROTEIN) [facility]] CMP [id number] 12:45:00 Test Item Value Reference Range Interpretation Comments GLUCOSE; Normal 89 mg/dl 65-139 N Non-fasting reference (test code = interval 1547-9) UREA NITROGEN 25 mg/dl 7-25 N (BUN) (test code = UREA NITROGEN (BUN)) CREATININE (test 0.75 mg/dl 0.50-0.99 N For patient s >49 years code = of age, the ref erence CREATININE) limitfor Creati nine is approximately 1 3% higher for peopleidentifie d as -Tiesha n. eGFR NON- 85 {ML/MIN/1.7} > OR = 60 N [place] (test code = eGFR NON-) eGFR 99 {ML/MIN/1.7} > OR = 60 N [place] (test code = eGFR ) BUN/CREATININE NOT APPLICABLE 6-22 RATIO (test code = BUN/CREATININE RATIO) SODIUM (test code 141 mmol/L 135-146 N = SODIUM) POTASSIUM (test 4.2 mmol/L 3.5-5.3 N code = POTASSIUM) CHLORIDE (test 103 mmol/L 98-110 N code = CHLORIDE) CARBON DIOXIDE 29 mmol/L 20-32 N (test code = CARBON DIOXIDE) CALCIUM (test 10.1 mg/dl 8.6-10.4 N code = CALCIUM) PROTEIN, TOTAL 7.2 g/dl 6.1-8.1 N (test code = PROTEIN, TOTAL) ALBUMIN (test 4.4 g/dl 3.6-5.1 N code = ALBUMIN) GLOBULIN (test 2.8 {G/DL CALC} 1.9-3.7 N code = GLOBULIN) ALBUMIN/GLOBULIN 1.6 {CALC} 1.0-2.5 N RATIO (test code = ALBUMIN/GLOBULIN RATIO) BILIRUBIN, TOTAL; 0.4 mg/dl 0.2-1.2 N Normal (test code = 24325-2) ALKALINE 61 u/l 33-130 N PHSPHATASE (test code = ALKALINE PHSPHATASE) AST; Normal (test 20 u/l 10-35 N code = 1916-6) ALT; Normal (test 18 u/l 6-29 N code = 1742-6) [facility]] CBC (INCLUDES DIFF/PLT)2019-09-06 12:45:00 Test Item Value Reference Range Interpretation Comments WHITE BLOOD CELL COUNT 9.9 {Thousand/u} 3.8-10.8 N (test code = WHITE BLOOD CELL COUNT) RED BLOOD CELL COUNT (test 4.30 {Million/uL} 3.80-5.10 N code = RED BLOOD CELL COUNT) HEMAGLOBIN; Normal (test 13.6 g/dl 11.7-15.5 N code = 86830-7) HEMATOCRIT; Normal (test 40.6 % 35.0-45.0 N code = 4544-3) MCV; Normal (test code = 94.4 fL 80.0-100.0 N 787-2) MCHC; Normal (test code = 33.5 g/dl 32.0-36.0 N 41885-3) RDW; Normal (test code = 13.7 % 11.0-15.0 N 788-0) PLATELET COUNT; Normal 361 {Thousand/u} 140-400 N (test code = 777-3) MPV; Normal (test code = 10.6 fL 7.5-12.5 N 83804-8) ABSOLUTE NEUTROPHILS (test 5792 {cells/uL} 2516-4858 N code = ABSOLUTE NEUTROPHILS) ABSOLUTE LYMPHOCYTES (test 3079 {cells/uL} 850-3900 N code = ABSOLUTE LYMPHOCYTES) ABSOLUTE MONOCYTES (test 723 {cells/uL} 200-950 N code = ABSOLUTE MONOCYTES) ABSOLUTE EOSINOPHILS (test 218 {cells/uL} 15-500 N code = ABSOLUTE EOSINOPHILS) ABSOLUTE BASOPHILS (test 89 {cells/uL} 0-200 N code = ABSOLUTE BASOPHILS) NEUTROPHILS (test code = 58.5 % N NEUTROPHILS) LYMPHOCYTES (test code = 31.1 % N LYMPHOCYTES) MONOCYTES; Normal (test 7.3 % N code = 78304-6) EOSINOPHILS; Normal (test 2.2 % N code = 31846-0) BASOPHILS; Normal (test 0.9 % N code = 27217-9) [facility]] C-REACTIVE [id number] 12:45:00 Test Item Value Reference Range Interpretation Comments C-REACTIVE PROTEIN (test code = 1.8 mg/L <8.0 N C-REACTIVE PROTEIN) [facility] K[facility] 3 Views Bilateral [id number] 13:19:00EXAMINATION: Bilateral knees 3 views each.HISTORY: - L40.50 Arthropathic psoriasis, unspecified; bilateral knee painFINDINGS: Frontal and oblique views of both knees and lateral views of eachknee are performed without comparison.On the left, there is no acute fracture. There is mild medial compartment andminimal patellofemoral compartment, bicompartmental knee osteoarthritis. Thereis a trace knee effusion.On the right, there is no acute fracture. There is minimal patellofemoralcompartment osteoarthritis. The medial and lateral joint spaces are withinnormal limits. There is no definite knee effusion.IMPRESSION:1. Mild medial compartment and minimal patellofemoral compartment,bicompartmental leftknee osteoarthritis with a trace left knee effusion.2. Minimal patellofemoral compartment osteoarthritis of the right knee withoutdefinite right knee effusion.--Read by: Jesus Dennis MDDictated Date/time: 09/02/19 15:43Electronically Signed by: Jesus Dennis MD 09/02/1915:44FINAL REPORTUnVal[facility][Q] CELL COUNT AND DIFF, FLUID, [id number] 00:00:00 Test Item Value Reference Range Interpretation Comments FLUID TYPE (test LEFT KNEE code = FLUID TYPE) COLOR (test code = STRAW Reference RangeNot COLOR) established APPEARANCE (test CLEAR Reference R angeNot code = APPEARANCE) establish ed TOTAL NUCLEATED CELL 215 {cells/uL} Refer ence RangeNot CT (test code = established TOTAL NUCLEATED CELL CT) NEUTROPHILS, % (test 1 % N Referen ce RangeNot code = NEUTROPHILS, establis hed %) LYMPHOCYTES, % (test 11 % N Referen ce RangeNot code = LYMPHOCYTES, establis hed %) MONOCYTE/MACROPHAGE 88 % N Referenc e RangeNot % (test code = established MONOCYTE/MACROPHAGE %) EOSINOPHILS, % (test 0 % N Referen ce RangeNot code = EOSINOPHILS, establis hed %) BASOPHILS, % (test 0 % N Reference RangeNot code = BASOPHILS, %) establi shed MESOTHELIAL, % (test 0 % N Referen ce RangeNot code = MESOTHELIAL, establis hed %) [facility][Q] CRYSTALS, [id number] 00:00:00 Test Item Value Reference Range Interpretation Comments SOURCE (test code = SOURCE) *LEFT KNEE CRYSTALS, FLUID (test code = NONE SEEN NONE SEEN N CRYSTALS, FLUID) [facility][QL] CULTURE, AEROBIC AND ANAEROBIC W/GRAM STAIN 2019-07-27 00:00:00 Test Item Value Reference Range Interpretation Comments CULTURE (test code = See Comment CULTURE , AEROBIC CULTURE) [facility] NUMBER: [id number] TEST STATUS: FINAL SPECIMEN SOURCE: KNEE, LEFT SPECIMEN QUALIT Y: ADEQUATE RESUL T: No Growt h [facility]] CMP [id number] 13:15:00 Test Item Value Reference Range Interpretation Comments GLUCOSE; Normal 100 mg/dl 65-139 N Non-fasting reference (test code = interval 1547-9) UREA NITROGEN 17 mg/dl 7-25 N (BUN) (test code = UREA NITROGEN (BUN)) CREATININE (test 0.67 mg/dl 0.50-0.99 N For patient s >49 years code = of age, the ref erence CREATININE) limitfor Creati nine is approximately 1 3% higher for peopleidentifie d as -Tiesha n. eGFR NON- 94 {ML/MIN/1.7} > OR = 60 N [place] (test code = eGFR NON-) eGFR 109 {ML/MIN/1.7} > OR = 60 N [place] (test code = eGFR ) BUN/CREATININE NOT APPLICABLE 6-22 RATIO (test code = BUN/CREATININE RATIO) SODIUM (test code 140 mmol/L 135-146 N = SODIUM) POTASSIUM (test 3.7 mmol/L 3.5-5.3 N code = POTASSIUM) CHLORIDE (test 102 mmol/L 98-110 N code = CHLORIDE) CARBON DIOXIDE 29 mmol/L 20-32 N (test code = CARBON DIOXIDE) CALCIUM (test 9.8 mg/dl 8.6-10.4 N code = CALCIUM) PROTEIN, TOTAL 7.1 g/dl 6.1-8.1 N (test code = PROTEIN, TOTAL) ALBUMIN (test 4.2 g/dl 3.6-5.1 N code = ALBUMIN) GLOBULIN (test 2.9 {G/DL CALC} 1.9-3.7 N code = GLOBULIN) ALBUMIN/GLOBULIN 1.4 {CALC} 1.0-2.5 N RATIO (test code = ALBUMIN/GLOBULIN RATIO) BILIRUBIN, TOTAL; 0.4 mg/dl 0.2-1.2 N Normal (test code = 75265-6) ALKALINE 68 u/l 33-130 N PHSPHATASE (test code = ALKALINE PHSPHATASE) AST; Normal (test 17 u/l 10-35 N code = 1916-6) ALT; Normal (test 19 u/l 6-29 N code = 1742-6) [facility]] CBC (INCLUDES DIFF/PLT)2019-06-21 13:15:00 Test Item Value Reference Range Interpretation Comments WHITE BLOOD CELL COUNT 12.5 {Thousand/u} 3.8-10.8 (test code = WHITE BLOOD CELL COUNT) RED BLOOD CELL COUNT (test 4.29 {Million/uL} 3.80-5.10 N code = RED BLOOD CELL COUNT) HEMAGLOBIN; Normal (test 13.4 g/dl 11.7-15.5 N code = 76289-6) HEMATOCRIT; Normal (test 39.3 % 35.0-45.0 N code = 4544-3) MCV; Normal (test code = 91.6 fL 80.0-100.0 N 787-2) MCHC; Normal (test code = 34.1 g/dl 32.0-36.0 N 34499-1) RDW; Normal (test code = 13.9 % 11.0-15.0 N 788-0) PLATELET COUNT; Normal 309 {Thousand/u} 140-400 N (test code = 777-3) MPV; Normal (test code = 10.5 fL 7.5-12.5 N 92258-4) ABSOLUTE NEUTROPHILS (test 8138 {cells/uL} 7206-1296 code = ABSOLUTE NEUTROPHILS) ABSOLUTE LYMPHOCYTES (test 2763 {cells/uL} 850-3900 N code = ABSOLUTE LYMPHOCYTES) ABSOLUTE MONOCYTES (test 1138 {cells/uL} 200-950 code = ABSOLUTE MONOCYTES) ABSOLUTE EOSINOPHILS (test 388 {cells/uL} 15-500 N code = ABSOLUTE EOSINOPHILS) ABSOLUTE BASOPHILS (test 75 {cells/uL} 0-200 N code = ABSOLUTE BASOPHILS) NEUTROPHILS (test code = 65.1 % N NEUTROPHILS) LYMPHOCYTES (test code = 22.1 % N LYMPHOCYTES) MONOCYTES; Normal (test 9.1 % N code = 28055-3) EOSINOPHILS; Normal (test 3.1 % N code = 24031-6) BASOPHILS; Normal (test 0.6 % N code = 88083-1) [facility]] CMP [id number] 13:52:00 Test Item Value Reference Range Interpretation Comments GLUCOSE; Normal 106 mg/dl 65-139 N Non-fasting reference (test code = interval 1547-9) UREA NITROGEN 20 mg/dl 7-25 N (BUN) (test code = UREA NITROGEN (BUN)) CREATININE (test 0.74 mg/dl 0.50-0.99 N For patient s >49 years code = of age, the ref erence CREATININE) limitfor Creati nine is approximately 1 3% higher for peopleidentifie d as -Tiesha n. eGFR NON- 87 {ML/MIN/1.7} > OR = 60 N [place] (test code = eGFR NON-) eGFR 101 {ML/MIN/1.7} > OR = 60 N [place] (test code = eGFR ) BUN/CREATININE NOT APPLICABLE 6-22 RATIO (test code = BUN/CREATININE RATIO) SODIUM (test code 140 mmol/L 135-146 N = SODIUM) POTASSIUM (test 4.2 mmol/L 3.5-5.3 N code = POTASSIUM) CHLORIDE (test 104 mmol/L 98-110 N code = CHLORIDE) CARBON DIOXIDE 25 mmol/L 20-32 N (test code = CARBON DIOXIDE) CALCIUM (test 9.6 mg/dl 8.6-10.4 N code = CALCIUM) PROTEIN, TOTAL 7.1 g/dl 6.1-8.1 N (test code = PROTEIN, TOTAL) ALBUMIN (test 4.4 g/dl 3.6-5.1 N code = ALBUMIN) GLOBULIN (test 2.7 {G/DL CALC} 1.9-3.7 N code = GLOBULIN) ALBUMIN/GLOBULIN 1.6 {CALC} 1.0-2.5 N RATIO (test code = ALBUMIN/GLOBULIN RATIO) BILIRUBIN, TOTAL; 0.3 mg/dl 0.2-1.2 N Normal (test code = 56464-2) ALKALINE 62 u/l 33-130 N PHSPHATASE (test code = ALKALINE PHSPHATASE) AST; Normal (test 19 u/l 10-35 N code = 1916-6) ALT; Normal (test 22 u/l 6-29 N code = 1742-6) [facility]] CBC (INCLUDES DIFF/PLT)2019-03-15 13:52:00 Test Item Value Reference Range Interpretation Comments WHITE BLOOD CELL COUNT 7.7 {Thousand/u} 3.8-10.8 N (test code = WHITE BLOOD CELL COUNT) RED BLOOD CELL COUNT (test 4.49 {Million/uL} 3.80-5.10 N code = RED BLOOD CELL COUNT) HEMAGLOBIN; Normal (test 13.9 g/dl 11.7-15.5 N code = 36792-1) HEMATOCRIT; Normal (test 41.2 % 35.0-45.0 N code = 4544-3) MCV; Normal (test code = 91.8 fL 80.0-100.0 N 787-2) MCHC; Normal (test code = 33.7 g/dl 32.0-36.0 N 21639-4) RDW; Normal (test code = 13.6 % 11.0-15.0 N 788-0) PLATELET COUNT; Normal 367 {Thousand/u} 140-400 N (test code = 777-3) MPV; Normal (test code = 10.3 fL 7.5-12.5 N 13873-2) ABSOLUTE NEUTROPHILS (test 4289 {cells/uL} 3501-3103 N code = ABSOLUTE NEUTROPHILS) ABSOLUTE LYMPHOCYTES (test 2449 {cells/uL} 850-3900 N code = ABSOLUTE LYMPHOCYTES) ABSOLUTE MONOCYTES (test 570 {cells/uL} 200-950 N code = ABSOLUTE MONOCYTES) ABSOLUTE EOSINOPHILS (test 331 {cells/uL} 15-500 N code = ABSOLUTE EOSINOPHILS) ABSOLUTE BASOPHILS (test 62 {cells/uL} 0-200 N code = ABSOLUTE BASOPHILS) NEUTROPHILS (test code = 55.7 % N NEUTROPHILS) LYMPHOCYTES (test code = 31.8 % N LYMPHOCYTES) MONOCYTES; Normal (test 7.4 % N code = 52236-5) EOSINOPHILS; Normal (test 4.3 % N code = 89365-8) BASOPHILS; Normal (test 0.8 % N code = 57068-2) [facility]] C-REACTIVE [id number] 13:52:00 Test Item Value Reference Range Interpretation Comments C-REACTIVE PROTEIN (test code = 2.6 mg/L <8.0 N C-REACTIVE PROTEIN) [facility][U] XRAY HIPS BILATERAL MIN 2 VWS AND AP PELVIS [id number] 10:14:00 Test Item Value Reference Range Interpretation Comments XR HIPS BILATERAL EXAM: XR HIPS BILATERAL MIN 2 VWS AND AP MIN 2 VWS AND AP PELVIS PELVIS (test code = DATE: 03/14/2019 10:28 AM XR HIPS BILATERAL CDT INDICATION: MIN 2 VWS AND AP Psoriatic arthropathy PELVIS) Psoriatic arthropathy COMPARISON: Bilateral hip radiographs 11/17/2017 TECHNIQUE: Frogleg lateral radiographs of bilateral hips and a single AP radiograph of the pelvis DISCUSSION: No acute fracture or malalignment is identified. Hip joint spaces are preserved bilaterally. Small bilateral hips osteophytes. Small bilateral sacroiliac osteophytes without joint space narrowing, sclerosis, or erosions. Severe degenerative disc disease and facet arthropathy of the lower lumbar spine. No soft tissue abnormality is identified. IMPRESSION:1. Mild osteoarthrosis of bilateral sacroiliac joints.2. Mild osteoarthrosis of the bilateral hips. 03/14/2019 12:31 PM CDT Tim Garcia [facility]] CMP [id number] 13:06:00 Test Item Value Reference Range Interpretation Comments GLUCOSE; Normal 103 mg/dl 65-139 N Non-fasting reference (test code = interval 1547-9) UREA NITROGEN 22 mg/dl 7-25 N (BUN) (test code = UREA NITROGEN (BUN)) CREATININE (test 0.63 mg/dl 0.50-0.99 N For patient s >49 years code = of age, the ref erence CREATININE) limitfor Creati nine is approximately 1 3% higher for peopleidentifie d as -Tiesha n. eGFR NON- 97 {ML/MIN/1.7} > OR = 60 N [place] (test code = eGFR NON-) eGFR 112 {ML/MIN/1.7} > OR = 60 N [place] (test code = eGFR ) BUN/CREATININE NOT APPLICABLE 6-22 RATIO (test code = BUN/CREATININE RATIO) SODIUM (test code 143 mmol/L 135-146 N = SODIUM) POTASSIUM (test 3.8 mmol/L 3.5-5.3 N code = POTASSIUM) CHLORIDE (test 105 mmol/L 98-110 N code = CHLORIDE) CARBON DIOXIDE 30 mmol/L 20-32 N (test code = CARBON DIOXIDE) CALCIUM (test 9.3 mg/dl 8.6-10.4 N code = CALCIUM) PROTEIN, TOTAL 6.7 g/dl 6.1-8.1 N (test code = PROTEIN, TOTAL) ALBUMIN (test 4.4 g/dl 3.6-5.1 N code = ALBUMIN) GLOBULIN (test 2.3 {G/DL CALC} 1.9-3.7 N code = GLOBULIN) ALBUMIN/GLOBULIN 1.9 {CALC} 1.0-2.5 N RATIO (test code = ALBUMIN/GLOBULIN RATIO) BILIRUBIN, TOTAL; 0.5 mg/dl 0.2-1.2 N Normal (test code = 76480-2) ALKALINE 60 u/l 33-130 N PHSPHATASE (test code = ALKALINE PHSPHATASE) AST; Normal (test 22 u/l 10-35 N code = 1916-6) ALT; Normal (test 23 u/l 6-29 N code = 1742-6) [facility]] SED RATE BY MODIFIED [id number] 13:06:00 Test Item Value Reference Range Interpretation Comments SED RATE BY MODIFIED WESTERGREN (test 19 mm/h < OR = 30 N code = SED RATE BY MODIFIED WESTERGREN) [facility]] CBC (INCLUDES DIFF/PLT)2018-11-17 13:06:00 Test Item Value Reference Range Interpretation Comments WHITE BLOOD CELL COUNT 10.8 {Thousand/u} 3.8-10.8 N (test code = WHITE BLOOD CELL COUNT) RED BLOOD CELL COUNT (test 4.30 {Million/uL} 3.80-5.10 N code = RED BLOOD CELL COUNT) HEMAGLOBIN; Normal (test 13.5 g/dl 11.7-15.5 N code = 20751-7) HEMATOCRIT; Normal (test 40.0 % 35.0-45.0 N code = 4544-3) MCV; Normal (test code = 93.0 fL 80.0-100.0 N 787-2) MCHC; Normal (test code = 33.8 g/dl 32.0-36.0 N 55299-0) RDW; Normal (test code = 14.2 % 11.0-15.0 N 788-0) PLATELET COUNT; Normal 315 {Thousand/u} 140-400 N (test code = 777-3) MPV; Normal (test code = 10.7 fL 7.5-12.5 N 17533-4) ABSOLUTE NEUTROPHILS (test 6534 {cells/uL} 2966-7560 N code = ABSOLUTE NEUTROPHILS) ABSOLUTE LYMPHOCYTES (test 3002 {cells/uL} 850-3900 N code = ABSOLUTE LYMPHOCYTES) ABSOLUTE MONOCYTES (test 886 {cells/uL} 200-950 N code = ABSOLUTE MONOCYTES) ABSOLUTE EOSINOPHILS (test 313 {cells/uL} 15-500 N code = ABSOLUTE EOSINOPHILS) ABSOLUTE BASOPHILS (test 65 {cells/uL} 0-200 N code = ABSOLUTE BASOPHILS) NEUTROPHILS (test code = 60.5 % N NEUTROPHILS) LYMPHOCYTES (test code = 27.8 % N LYMPHOCYTES) MONOCYTES; Normal (test 8.2 % N code = 50663-0) EOSINOPHILS; Normal (test 2.9 % N code = 50521-3) BASOPHILS; Normal (test 0.6 % N code = 02675-9) [facility]] C-REACTIVE [id number] 13:06:00 Test Item Value Reference Range Interpretation Comments C-REACTIVE PROTEIN (test code = 2.8 mg/L <8.0 N C-REACTIVE PROTEIN) [facility]] CMP [id number] 11:45:01 Test Item Value Reference Range Interpretation Comments Sodium Level 140 {mEq/l} 135-145 (test code = 2951-2) Potassium Level 4.1 {mEq/l} 3.5-5.1 (test code = 2823-3) Chloride Level 104 {mEq/l} 95-109 (test code = 5-0) Carbon Dioxide 30 {mEq/l} 24-32 (test code = 2027-9) AGAP (test code = 10.1 {mEq/l} 10.0-20.0 38969-8) Glucose Lvl; 103 mg/dl 70-99 Adult reference range Above High values reflect the Threshold (test clinical ines delinesof the code = 2345-7) [place] [employer]. Creatinine Lvl 0.80 mg/dl 0.50-1.40 (test code = 2160-0) Blood Urea 24 mg/dl 7-22 Nitrogen; Above High Threshold (test code = 3094-0) BUN/Creatinine 30 6-25 Ratio; Above High Threshold (test code = 3097-3) Total Protein 7.5 g/dl 6.4-8.4 (test code = 2885-2) Albumin Lvl (test 4.5 g/dl 3.5-5.0 code = 1751-7) Globulin (test 3.0 g/dl 2.7-4.2 code = 31085-2) A/G Ratio (test 1.5 0.7-1.6 code = 1759-0) Calcium Level 9.1 mg/dl 8.5-10.5 Total (test code = 63751-3) ALT (test code = 29 u/l 0-65 1743-4) AST (test code = 22 u/l 0-37 20812-0) Bili Total (test 0.5 mg/dl 0.2-1.3 code = 1975-2) Alk Phos (test 74 u/l 39-136 code = 1783-0) eGFR (test code = 80 The eGFR i s calculated 62259-5) {ML/MIN/1.7} using the CKD-E PI formula. In mos t young, healthyindividu als the eGFR will be >9 0 mL/min/1.73m2. The eGFR declines with a ge. AneGFR of 60-89 may be normal in some population s, particularly th e elderly, forwhom the CKD -EPI formula has not been extensively jose idated. Use of the eGFR isnot recommended in the following populations:Ind ividuals with unstable c reatinine concentrations, including patient s and those with seri ous co-morbid conditions.Dayna ents with extremes in mus tamela mass or diet.The onel a above are obtained fr om the National Kidney Disease Education Progr am(NKDEP) which diana alvarado recommends that when the eGFR is used in patientswith ex tremes of body mass index for purposes of arnold g dosing, the eGFR should be multiplied by t he estimated BMI. [facility]] C-REACTIVE [id number] 11:45:01 Test Item Value Reference Range Interpretation Comments CRP (test code = CRP) <2.9 <=2.9 [facility]] CBC (INCLUDES DIFF/PLT)2018-07-20 11:45:01 Test Item Value Reference Range Interpretation Comments WBC (test code = 6690-2) 7.5 {K/CMM} 3.7-10.4 RBC (test code = 789-8) 4.33 {M/CMM} 4.20-5.40 Hgb (test code = 718-7) 13.5 g/dl 12.0-16.0 Hct (test code = 06128-6) 40.8 % 36.0-48.0 MCV (test code = 787-2) 94.1 fL 80.0-98.0 MCH; Above High Threshold (test 31.3 pg 27.0-31.0 code = 785-6) MCHC (test code = 786-4) 33.2 g/dl 32.0-36.0 RDW; Above High Threshold (test 15.0 % 11.5-14.5 code = 788-0) Platelet (test code = 63075-0) 327 {K/CMM} 133-450 Mean Platelet Volume (test code 8.9 fL 7.4-10.4 = 31457-5) [facility]] [id number] 11:45:01 Test Item Value Reference Range Interpretation Comments Segmented Neutrophils (test code 54.4 % 45.0-75.0 = 82968-6) Monocytes (test code = 22553-4) 7.6 % 2.0-12.0 Lymphocytes (test code = 48216-5) 32.2 % 20.0-40.0 Eosinophils; Above High Threshold 4.7 % 0.0-4.0 (test code = 77497-9) Basophils; Above High Threshold 1.1 % 0.0-1.0 (test code = 706-2) Segs-Bands # (test code = 4.1 {K/CMM} 1.5-8.1 86686-9) Lymphocytes # (test code = 2.4 {K/CMM} 1.0-5.5 77400-6) Monocytes # (test code = 59000-5) 0.6 {K/CMM} 0.0-0.8 Eosinophils # (test code = 0.4 {K/CMM} 0.0-0.5 62154-7) Basophils # (test code = 66284-3) 0.1 {K/CMM} 0.0-0.2 [facility]] CMP [id number] 09:31:00 Test Item Value Reference Range Interpretation Comments GLUCOSE; Above 106 mg/dl 65-99 Fasting refer ence High Threshold interval For someone (test code = without known 1547-9) diabetes, a glu cose valuebetween 10 0 and 125 mg/dL is consistent withprediabetes and should be confi rmed with afollow-up test. UREA NITROGEN 23 mg/dl 7-25 N (BUN) (test code = UREA NITROGEN (BUN)) CREATININE (test 0.71 mg/dl 0.50-0.99 N For patient s >49 years code = of age, the ref erence CREATININE) limitfor Creati nine is approximately 1 3% higher for peopleidentifie d as -Tiesha n. eGFR NON- 93 {ML/MIN/1.7} > OR = 60 N [place] (test code = eGFR NON-) eGFR 107 {ML/MIN/1.7} > OR = 60 N [place] (test code = eGFR ) BUN/CREATININE NOT APPLICABLE 6-22 RATIO (test code = BUN/CREATININE RATIO) SODIUM (test code 141 mmol/L 135-146 N = SODIUM) POTASSIUM (test 4.0 mmol/L 3.5-5.3 N code = POTASSIUM) CHLORIDE (test 103 mmol/L 98-110 N code = CHLORIDE) CARBON DIOXIDE 29 mmol/L 20-31 N (test code = CARBON DIOXIDE) CALCIUM (test 9.4 mg/dl 8.6-10.4 N code = CALCIUM) PROTEIN, TOTAL 7.2 g/dl 6.1-8.1 N (test code = PROTEIN, TOTAL) ALBUMIN (test 4.5 g/dl 3.6-5.1 N code = ALBUMIN) GLOBULIN (test 2.7 {G/DL CALC} 1.9-3.7 N code = GLOBULIN) ALBUMIN/GLOBULIN 1.7 {CALC} 1.0-2.5 N RATIO (test code = ALBUMIN/GLOBULIN RATIO) BILIRUBIN, TOTAL; 0.4 mg/dl 0.2-1.2 N Normal (test code = 59975-6) ALKALINE 61 u/l 33-130 N PHSPHATASE (test code = ALKALINE PHSPHATASE) AST; Normal (test 25 u/l 10-35 N code = 1916-6) ALT; Above High 33 u/l 6-29 Threshold (test code = 1742-6) [facility]] SED RATE BY MODIFIED [id number] 09:31:00 Test Item Value Reference Range Interpretation Comments SED RATE BY MODIFIED CRISTAERGREN (test 14 mm/h < OR = 30 N code = SED RATE BY MODIFIED CRISTAERGREN) [facility]] CBC (INCLUDES DIFF/PLT)2018-03-29 09:31:00 Test Item Value Reference Range Interpretation Comments WHITE BLOOD CELL COUNT 7.3 {Thousand/u} 3.8-10.8 N (test code = WHITE BLOOD CELL COUNT) RED BLOOD CELL COUNT (test 4.44 {Million/uL} 3.80-5.10 N code = RED BLOOD CELL COUNT) HEMOGLOBIN; Normal (test 13.6 g/dl 11.7-15.5 N code = 10648-5) HEMATOCRIT; Normal (test 40.8 % 35.0-45.0 N code = 4544-3) MCV; Normal (test code = 91.9 fL 80.0-100.0 N 787-2) MCHC; Normal (test code = 33.3 g/dl 32.0-36.0 N 96271-6) RDW; Normal (test code = 13.8 % 11.0-15.0 N 788-0) PLATELET COUNT; Normal 338 {Thousand/u} 140-400 N (test code = 777-3) MPV; Normal (test code = 10.4 fL 7.5-12.5 N 55370-5) ABSOLUTE NEUTROPHILS (test 4044 {cells/uL} 8269-2605 N code = ABSOLUTE NEUTROPHILS) ABSOLUTE LYMPHOCYTES (test 2278 {cells/uL} 850-3900 N code = ABSOLUTE LYMPHOCYTES) ABSOLUTE MONOCYTES (test 540 {cells/uL} 200-950 N code = ABSOLUTE MONOCYTES) ABSOLUTE EOSINOPHILS (test 380 {cells/uL} 15-500 N code = ABSOLUTE EOSINOPHILS) ABSOLUTE BASOPHILS (test 58 {cells/uL} 0-200 N code = ABSOLUTE BASOPHILS) NEUTROPHILS (test code = 55.4 % N NEUTROPHILS) LYMPHOCYTES (test code = 31.2 % N LYMPHOCYTES) MONOCYTES; Normal (test 7.4 % N code = 01086-6) EOSINOPHILS; Normal (test 5.2 % N code = 95771-0) BASOPHILS; Normal (test 0.8 % N code = 06918-6) [facility]] C-REACTIVE [id number] 09:31:00 Test Item Value Reference Range Interpretation Comments C-REACTIVE PROTEIN (test code = 1.8 mg/L <8.0 N C-REACTIVE PROTEIN) [facility]] XRAY HIPS BILATERAL MIN 2 VWS AND AP PELVIS [id number] 13:02:00 Test Item Value Reference Range Interpretation Comments XR HIPS BILATERAL EXAM: XR HIPS BILATERAL MIN 2 VWS AND AP MIN 2 VWS AND AP PELVIS PELVIS (test code = DATE: 11/17/2017 1:14 PM XR HIPS BILATERAL YARN CARRIER INDICATION: pain MIN 2 VWS AND AP COMPARISON: None PELVIS) available TECHNIQUE: Bilateral frog leg lateral radiographs of the hips and AP radiograph of the pelvis FINDINGS: No fracture, periosteal reaction, or erosions identified. Joint alignment is normal. Small bilateral acetabular osteophytes noted.Moderate- severe degenerative disc disease and facet arthropathy at the lower lumbar spine noted.Mild degenerative changes of the SI joints. Soft tissues are unremarkable. IMPRESSION:Mild osteoarthrosis of the hips. Mild degenerative changes of the SI joints. Moderate-severe degenerative disc disease and facet arthropathy at the lower lumbar spine. 11/17/2017 2:39 PM YARN CARRIER Alexei Green [facility]] SED RATE BY MODIFIED [id number] 12:38:01 Test Item Value Reference Range Interpretation Comments Sedimentation Rate (test code = 35 {mm/hr} 0-20 Sedimentation Rate) [facility]] CMP [id number] 12:38:01 Test Item Value Reference Range Interpretation Comments Sodium Level 138 {mEq/l} 135-145 (test code = Sodium Level) Potassium Level 4.0 {mEq/l} 3.5-5.1 (test code = Potassium Level) Chloride Level 104 {mEq/l} 95-109 (test code = Chloride Level) Carbon Dioxide 26 {mEq/l} 24-32 (test code = Carbon Dioxide) AGAP (test code = 12.0 {mEq/l} 10.0-20.0 AGAP) Glucose Lvl (test 89 mg/dl 70-99 Adult refe rence range code = Glucose values reflec t the Lvl) clinical guidel inesof the [place] [employer]abet es [employer]. Creatinine Lvl 0.70 mg/dl 0.50-1.40 (test code = Creatinine Lvl) Blood Urea 28 mg/dl 7-22 Nitrogen (test code = Blood Urea Nitrogen) BUN/Creatinine 40 6-25 Ratio (test code = BUN/Creatinine Ratio) Total Protein; 8.5 g/dl 6.4-8.4 Above High Threshold (test code = 05912-1) Albumin Lvl (test 4.6 g/dl 3.5-5.0 code = 1751-7) Globulin (test 3.9 g/dl 2.7-4.2 code = Globulin) A/G Ratio (test 1.2 0.7-1.6 code = A/G Ratio) Calcium Level 9.8 mg/dl 8.5-10.5 Total (test code = Calcium Level Total) ALT (test code = 39 u/l 0-65 1742-6) AST (test code = 22 u/l 0-37 1916-6) Bili Total (test 0.3 mg/dl 0.2-1.3 code = 00153-2) Alk Phos (test 63 u/l 39-136 code = 1783-0) eGFR (test code = 94 The eGFR i s calculated eGFR) {ML/MIN/1.7} using the CKD-E PI formula. In mos t young, healthyindividu als the eGFR will be >9 0 mL/min/1.73m2. The eGFR declines with a ge. AneGFR of 60-89 may be normal in some population s, particularly th e elderly, forwhom the CKD -EPI formula has not been extensively jose idated. Use of the eGFR isnot recommended in the following populations:Ind ividuals with unstable c reatinine concentrations, including patient s and those with seri ous co-morbid conditions.Dayna ents with extremes in mus tamela mass or diet.The onel a above are obtained fr om the National Kidney Disease Education Progr am(NKDEP) which diana calley recommends that when the eGFR is used in patientswith ex tremes of body mass index for purposes of arnold g dosing, the eGFR should be multiplied by t he estimated BMI. [facility]] C-REACTIVE [id number] 12:38:01 Test Item Value Reference Range Interpretation Comments CRP (test code = CRP) <2.9 <=2.9 [facility]] CBC (INCLUDES DIFF/PLT)2017-11-17 12:38:01 Test Item Value Reference Range Interpretation Comments WBC (test code = WBC) 8.0 {K/CMM} 3.7-10.4 RBC (test code = RBC) 4.30 {M/CMM} 4.20-5.40 Hgb (test code = 62797-4) 13.6 g/dl 12.0-16.0 Hct (test code = 4544-3) 40.7 % 36.0-48.0 MCV (test code = MCV) 94.7 fL 80.0-98.0 MCH (test code = MCH) 31.6 pg 27.0-31.0 MCHC (test code = MCHC) 33.4 g/dl 32.0-36.0 RDW (test code = RDW) 14.8 % 11.5-14.5 Platelet (test code = 777-3) 353 {K/CMM} 133-450 Mean Platelet Volume (test code 8.7 fL 7.4-10.4 = Mean Platelet Volume) [facility]] [id number] 12:38:01 Test Item Value Reference Range Interpretation Comments Segmented Neutrophils (test code 49.0 % 45.0-75.0 = 77776-3) Monocytes # (test code = 51785-4) 0.6 {K/CMM} 0.0-0.8 Lymphocytes (test code = 39.0 % 20.0-40.0 Lymphocytes) Eosinophils # (test code = 0.3 {K/CMM} 0.0-0.5 55407-5) Basophils # (test code = 48059-9) 0.1 {K/CMM} 0.0-0.2 Segs-Bands # (test code = 3.9 {K/CMM} 1.5-8.1 80726-4) Lymphocytes # (test code = 3.1 {K/CMM} 1.0-5.5 78130-6) [facility]
--- OUTSIDE RECORDS SUMMARY | 2020-09-21 08:08 | XMS REPORT | Summary of Care ---
:1955 Author Organization [facility] Address [address] [place] [address] Care Team Providers Name Role Phone Bijan Hitchcock MD Primary Care Provider Encounter Details Date Type Department Care Team Description 08/28/2020 Orders Only [facility] Doctor Unassigned, No [address] [facility] [place] [address] [address] [place] [address] Allergies Active Allergy Reactions Severity Noted Date Comments Sulfa (Sulfonamide Antibiotics) Unknown - See comments 04/28/2016 documented as of this encounter (statuses as of 09/11/2020) Medications Medication Sig Dispensed Refills Start Date End Date Status DULoxetine (CYMBALTA) 20 Take 1 0 03/25/2016 Active mg capsule capsule by mouth 2 (two) times daily. foLIC acid (FOLATE) 1 mg Take 1 tablet 0 03/25/2016 Active tablet by mouth 2 (two) times daily. methotrexate (RHEUMATREX) 0 04/22/2016 Active 2.5 mg tablet naproxen (NAPROSYN) 500 mg Take 1 tablet 0 6 Active tablet by mouth 2 (two) times daily. omeprazole (PRILOSEC) 40 Take 1 0 03/25/2016 Active mg capsule capsule by mouth daily. zjwzffejpj-hofhoobpifqic-z Take 1 60 capsule 5 11/11/2016 Active affeine 43-391-07-30 mg capsule by per capsule mouth every 4 (four) hours as needed for Headache. rosuvastatin 10 mg Take 1 tablet 30 tablet 5 01/26/2019 Active tabletIndications: by mouth at Hyperlipidemia with target bedtime. LDL less than 100 lisinopril 10 mg Take 1 tablet 90 tablet 1 01/26/2019 Active tabletIndications: by mouth Essential hypertension daily. ALPRAZolam 0.5 mg Take 1 tablet 40 tablet 1 01/26/2019 Active tabletIndications: Anxiety by mouth 3 (three) times daily as needed for Other (anxiety). amoxicillin-clavulanate Take 1 tablet 20 tablet 0 01/26/2019 Active (AUGMENTIN) 875-125 mg per by mouth 2 tabletIndications: Acute (two) times non-recurrent maxillary daily. sinusitis predniSONE 20 mg Take 2 21 tablet 0 02/16/2019 Ac tive tabletIndications: Rhus tablets by dermatitis mouth daily. For 7 days then 1 / day for 7 days VIMOVO 500-20 mg per 2 06/06/2019 Active tablet brompheniramine-pseudoephe Take 5 mL by 118 mL 0 07/17/2019 Active drine-DM (BROMFED DM) mouth 3 2-30-10 mg/5 mL (three) times syrupIndications: Sore daily as throat, Fever in adult needed for Congestion/Al lergies. naproxen 500 mg Take 1 tablet 60 tablet 0 07/17/2019 Active tabletIndications: Sore by mouth 2 throat, Fever in adult (two) times daily with meals. HYDROCHLOROTHIAZIDE 25 mg TAKE ONE 30 tablet 0 02/13/2020 Active tabletIndications: TABLET BY Essential hypertension MOUTH DAILY MONTELUKAST 10 mg TAKE ONE 90 tablet 0 07/12/2020 A ctive tabletIndications: TABLET BY Seasonal allergic rhinitis MOUTH DAILY due to other allergic trigger ROSUVASTATIN 10 mg TAKE ONE 90 tablet 0 07/26/2020 Active tabletIndications: TABLET BY Hyperlipidemia with target MOUTH AT LDL less than 100 BEDTIME LEVOTHYROXINE 75 mcg TAKE ONE 90 tablet 0 07/26/2020 Active tabletIndications: TABLET BY Hypothyroidism, MOUTH DAILY unspecified type documented as of this encounter (statuses as of 09/11/2020) Active Problems Problem Noted Date Anxiety 01/26/2019 Seasonal allergic rhinitis due to other allergic derek er 01/26/2019 Essential hypertension 04/28/2016 Hyperlipidemia with target LDL less than 100 6 Hypothyroidism 04/28/2016 RA (rheumatoid arthritis) 04/28/2016 documented as of this encounter (statuses as of 09/11/2020) Social History Tobacco Use Types Packs/Day Years Used Date Never Smoker Smokeless Tobacco: Never Used Alcohol Use Drinks/Week oz/Week Comments No Sex Assigned at Date Recorded Not on file COVID-19 Exposure Response Date Recorded In the last month, have you been in contact with No / Unsure 08/08/2020 9:20 AM CDT someone who was confirmed or suspected to have Coronavirus / COVID-19? documented as of this encounter Last Filed Vital Signs Not on filedocumented in this encounter Plan of Treatment Health Maintenance Due Date Last Done Comments HEPATITIS C (HCV) SCREEN 1955 PNEUMOCOCCAL 0-64 YEARS COMBINED 1963 SERIES (1 of 3 - PCV13) Depression Screening 1969 DTaP,Tdap,and Td Vaccines (1 - Tdap) 1976 Breast Cancer Screening (MAMMOGRAM) 1997 COLON CANCER SCREENING ANNUAL 2007 FIT/FOBT COLON CANCER SCREENING FIT DNA EVERY 2007 3 YEARS COLON CANCER SCREENING SIGMOIDOSCOPY 2007 EVERY 5 YEARS Zoster Recombinant Vaccine (SHINGRIX) 2007 (1 of 2) INFLUENZA VACCINE (#1) 2020 PAP SMEAR 11/18/2020 11/18/2017 (Previously completed) COLONOSCOPY 06/22/2023 06/22/2013 (Previously completed) Colorectal Cancer Screening 06/22/2023 documented as of this encounter Procedures Procedure Name Priority Date/Time Associated Diagnosis Comme nts REFERRAL- Routine 08/28/2020 12:01 AM DE ICER [employer]MENT WINDER REQUEST/RESPONSE documented in this encounter Results Not on filedocumented in this encounter Insurance Payer Benefit Plan / Group Subscriber ID Effective Dates Phone Address Type AETNA AETNA CHOICE POS II [id number] 2018-Present POS documented as of this encounter
[2020-09-21] MEDS ORDERED: Ringers Lactate 1,000 ML IV ONE ×2 (08:36→11:40)
[2020-09-21] MEDS: OXYMETAZOLINE HCL 0.05% 15ML NAS ONE ×3 (08:57→09:07)
[2020-09-21] MEDS ORDERED: LIDOCAINE 1% W/EPI 1:100,000 MDV 50 ML VIAL ONE (10:05)
[2020-09-21] MEDS ORDERED: OXYMETAZOLINE HCL 0.05% 15ML NAS ONE (10:05)
[2020-09-21] MEDS ORDERED: LIDOCAINE 2% MPF 5 ML VIAL ONE (10:09)
[2020-09-21] MEDS ORDERED: ROCURONIUM 50 MG/5 ML VIAL IV ONE (10:09)
[2020-09-21] MEDS ORDERED: FENTANYL CITR 100 MCG/2 ML ONE (10:09)
[2020-09-21] MEDS ORDERED: dexAMETHasone 10 MG/ML VIAL ONE (10:09)
[2020-09-21] MEDS ORDERED: propofoL 200 MG/20 ML VIAL IV ONE (10:09)
[2020-09-21] MEDS ORDERED: MIDAZOLAM HCL 2 MG/2 ML INJ ONE (10:09)
[2020-09-21] MEDS ORDERED: SCOPOLAMINE HYDROBROMIDE PATCH TD ONE (10:11)
[2020-09-21] MEDS ORDERED: NA CHLORIDE 0.9% 500 ML ONE (10:13)
[2020-09-21] MEDS ORDERED: ONDANSETRON 4 MG/2 ML VIAL ONE (10:59)
[2020-09-21] MEDS ORDERED: EPHEDRINE SULF 50 MG/ML VIAL ONE (11:01)
[2020-09-21] MEDS ORDERED: Phenylephrine HCl 10 MG/ML 1 ML VIAL ONE (11:17)
[2020-09-21] MEDS ORDERED: GLYCOPYRROLATE 0.2 MG/ML SYR ONE (11:36)
[2020-09-21] MEDS ORDERED: NEOSTIGMINE 1 MG/ML -5 ML ONE (11:37)
[2020-09-21 13:17] VITALS: BP 100/61; TEMP 97.5; O2SAT 93
--- NOTE | 2020-09-21 14:29 | P.BOP ---
Preoperative diagnosis: right chronic ethmoid sinusitis and right christine bullosa Primary procedure: right ethmoidectomy, anterior with image guidance Closing Agent: NONE,NONE Estimated blood loss: <20ml Specimen: sinus contents, culture anterior nasal cavity Findings: thick purulence in nasal vestibule and anterior septum Anesthesia: General Complications: None Implants: right ethmoid xeroform dissolvable dressing Fluids & blood products: crystalloid Transferred to: Recovery Room Condition: Good
--- NOTE | 2020-09-21 21:53 | OP ---
Date of Procedure: 09/21/2020 Surgeon: Stephenie Tim MD Preoperative Diagnoses: Chronic ethmoid sinusitis, right; right christine bullosa and nasal obstruction; and chronic headache. Indication For Procedure: Génesis Bingham presented with symptoms of chronic rhinosinusitis and history of migraine and clinical concern for allergic rhinitis. She was treated with maximal medical therapy and had persistent symptoms with isolated opacification in the right anterior ethmoid cells. The patient was also noted to have a right christine bullosa. The risks, benefits, and alternatives to the procedure were discussed with the patient, who agreed to proceed. Discussed that given the patient's underlying headache disorder, there was diagnostic uncertainty regarding the cause of her chronic facial pain. Description Of Procedure: The patient was brought to the operating room. She was placed under general anesthesia via oral endotracheal tube. The head of bed was turned 90 degrees and the nasal cavity was inspected. In the nasal vestibule and along the bilateral anterior septum, there was thick sticky yellow-green mucus. This was removed with a forceps and sent as a culture for identification. The nasal cavity was then packed with Afrin-soaked pledgets in preparation for nasal surgery. The registration dongle was secured to the patient's forehead and the [email or web address] image navigation system was loaded with the patient's post treatment CT scan. The patient's identity was confirmed and the system was registered using surface tracing in accordance with telephone sterilizer's instructions. The accuracy was felt to be very good by ylumt-ih-bsery registration including the base of the columella, the glabella, and the bilateral lateral canthi. Estimated accuracy was less than 0.5 mm. The patient's head was draped in a standard fashion for nasal surgery. The Afrin- soaked pledgets were used and 0-degree endoscope was used to perform a nasal endoscopy. The patient's septum was approximately midline to the inferior turbinate and nasopharynx was unremarkable. The middle turbinate was large, consistent with preoperative imaging. The middle meatus was clear from polyps or thick mucus, purulence, or signs of infection. The inferior turbinates and uncinate processes were injected with 1% lidocaine with epinephrine. After time for effect, the sickle knife was used to make an incision in the head of the middle turbinate to dissect the christine. The endoscopic scissors were used to divide superiorly and inferiorly, and the lateral aspect of the christine bullosa was removed. The cut edges were refined using the microdebrider and the bleeding was minimal. The anterior ethmoidectomy was then initiated with removal of the uncinate process using the backbiter and 90-degree Blakesley. A formal maxillary antrostomy was not performed and was not approved by the prior authorization from the insurance due to radiographic findings. The 90-degree Blakesley was then used to bluntly dissect into the anterior ethmoid cells removing bony partitions. A moderate area of polypoid mucosa was noted in the location consistent with the opacified cell on the CT scan. This area was judiciously dissected due to its location on the lamina. Afrin-soaked pledgets were applied to obtain hemostasis and decision was made to use the image guidance system to confirm adequate dissection of the area of interest. The straight navigation suction was registered according to manufacture's instructions. Accuracy was confirmed by [id number] placement on the tip of the nose, base of the columella, and the radix, and was felt to be very good. The navigation suction was then advanced under endoscopic guidance into the right nasal cavity and into the area of dissection. Using the image guidance, I was able to confirm that the opacified ethmoid cell had been completely and adequately dissected, and there was no evidence of disruption of the lamina with palpation of the globe externally. The area was then carefully suctioned. The pledget count was performed and correct. A Xerogel dissolvable sinus dressing was then placed within the right ethmoid cavity and soaked with saline. The nasopharynx was suctioned and the patient was returned to care of Anesthesia for awakening and extubation in the operating room, which proceeded without difficulty. Complications: None. Disposition: The patient will be discharged home later today and follow up with Dr. Tim in 10 days for an evaluation of healing and postoperative debridement. CHARANJIT/LITO Voice ID: [id number] Report ID: [id number] NANCY
== END 2020-09-21 13:13 | disposition home health service (06) ==
LOC: OR 07:55
PROVIDERS: ATTEND Otolaryngology
PROC: 09BU8ZZ Excision of Right Ethmoid Sinus, Via Natural or Artificial Opening Endoscopic (ICD-10-PCS; 2020-09-21)
PROC: 8E09XBZ Computer Assisted Procedure of Head and Neck Region (ICD-10-PCS; principal; 2020-09-21 09:30)
DX: J32.2 Chronic ethmoidal sinusitis (principal); J34.89 Other specified disorders of nose and nasal sinuses; Z20.828 Contact with and (suspected) exposure to other viral communicable diseases; I10 Essential (primary) hypertension; K21.9 Gastro-esophageal reflux disease without esophagitis; M06.9 Rheumatoid arthritis, unspecified
CPT/HCPCS: 93005; 87070; 87205; 88305; 88311; 87077; 87186; 87176; 31254; U0002; J2704; J2370; J2250; J3010; J1100; J2710; J7120 ×2; J7040; J2405; 88304